=== PATIENT | male | born 1980 | race Caucasian/White ===

== ENCOUNTER 2019-08-10 12:24 | Inpatient (IN) | payer OTHER ==
--- NOTE | 2019-08-10 12:43 | BHS.RME ---
Substance Use & Tx History - Substance Use History Alcohol Substance amount: 3 6 packs of beers Frequency of use: Daily (3) Substance route: Oral Date of Last Use: 08/10/19 (7am) Opiates (Heroin) Substance amount: 6 bags Frequency of use: Daily Substance route: Injection (ex: intravenous or skin popping) Date of Last Use: 08/09/19 Nicotine Substance amount: 1.5 packs Frequency of use: Daily Substance route: Smoking Date of Last Use: 08/10/19 - Last Treatment Date of last treatment: [address] Treatment type: Substance Use Disorder (ARIA) Where was last treatment: Detox Physical/Psych/Mental Status - Behavior General Behavior: Increased activity (restlessness, agitation) Eye Contact: Normal - Cooperativeness Cooperativeness: Cooperative - Thinking Thought Processes: Tight, Logical, Goal Directed Thought content: Future oriented - Physical Health Problems Is patient presently having any pain?: No Does patient presently have any injuries (include location): No Does patient currently have a fever: No Is patient : No COWS - Scale Resting Pulse: 0= [place] 80 or Below Sweatin= Chills/Flushing Restless Observation: 1= Difficult to Sit Still Pupil Size: 0= Normal to Room Light Bone or Joint Aches: 2= Severe Diffuse Aches Runny Nose/ Eye Tearin= Nasal Congestion GI Upset > 30mins: 3= Vomiting/Diarrhea Tremor Observation: 2= Slight Tremor Visible Yawning Observation: 1= 1-2x During Session Anxiety or Irritability: 2=Irritable/Anxious Goose Flesh Skin: 0=Smooth Skin COWS Score: 13 CIWA Nausea/Vomitin Muscle Tremors: 3 Anxiety: 2 Agitation: 2 Paroxysmal Sweats: 2 Orientation: 1-Uncertain about Date Tacttile Disturbances: 2-Mild Itch/Numbness/Burn Auditory Disturbances: 0-None Visual Disturbances: 0-None Headache: 3-Moderate CIWA-Ar Total Score: 17
--- NOTE | 2019-08-10 13:07 | HP ---
COWS - Scale Resting Pulse: 0= [place] 80 or Below Sweatin= Chills/Flushing Restless Observation: 1= Difficult to Sit Still Pupil Size: 0= Normal to Room Light Bone or Joint Aches: 2= Severe Diffuse Aches Runny Nose/ Eye Tearin= Nasal Congestion GI Upset > 30mins: 3= Vomiting/Diarrhea Tremor Observation: 2= Slight Tremor Visible Yawning Observation: 1= 1-2x During Session Anxiety or Irritability: 2=Irritable/Anxious Goose Flesh Skin: 0=Smooth Skin COWS Score: 13 CIWA Score Nausea/Vomitin Muscle Tremors: 3 Anxiety: 2 Agitation: 2 Paroxysmal Sweats: 2 Orientation: 1-Uncertain about Date Tacttile Disturbances: 2-Mild Itch/Numbness/Burn Auditory Disturbances: 0-None Visual Disturbances: 0-None Headache: 3-Moderate CIWA-Ar Total Score: 17 - Admission Criteria OASAS Guidelines: Admission for Medically Managed Detox: Requires at least one of the followin. CIWA greater than 12 2. Seizures within the past 24 hours 3. Delirium tremens within the past 24 hours 4. Hallucinations within the past 24 hours 5. Acute intervention needed for co occurring medical disorder 6. Acute intervention needed for co occurring psychiatric disorder 7. Severe withdrawal that cannot be handled at a lower level of care (continued vomiting, continued diarrhea, abnormal vital signs) requiring intravenous medication and/or fluids 8. Admitting History and Physical - Admission Chief Complaint: Mr. Chairez is a 39 yo man who presents to [facility] requesting a detox admission for "alcohol and heroin". History of Present Illness: Mr. Chairez is a 39 yo man who presents to [facility] requesting a detox admission for "alcohol and heroin". This is his first admission to [facility]. He was in a detox/rehab program called [facility]. However, after one month he was discharged due to noncompliance with a search. PMH: Hep C treated but unknown outcome, asthma PSurg: b/l inguinal hernia, hernioraphies Psych: none Substance use disorde Alcohol: 3x 6 pack, 24 ounce each, first use age 14y, last use 08/10/19. No blackouts or seizures heroin; 6 bags per day, IV, first use a14 yo, last use 08/09/19. No OD. No Narcan. In Methadone program, 90 mg dialy, dosed today: [address], HELP Nicotine: 1.5 ppd, first use 6yo, last use today Soc: homeless Meets admision criteria: homeless, high risk OD, poor decision making, poor judgment History Source: Patient Limitations to Obtaining History: No Limitations Admission ROS BHS - HPI Exam Limitations: No Limitations - Ebola screening Have you traveled outside of the country in the last 21 days: No Have you had contact with anyone from an Ebola affected area: No Have you been sick,other than usual withdrawal symptoms: No Do you have a fever: No - Review of Systems Constitutional: Loss of Appetite EENT: reports: Blurred Vision (glasses for distance, has with him) Respiratory: reports: No Symptoms reported Cardiac: reports: No Symptoms Reported GI: reports: See HPI, Nausea : reports: Frequency Musculoskeletal: reports: Joint Pain Integumentary: reports: No Symptoms Reported Neuro: reports: Headache Endocrine: reports: No Symptoms Reported Hematology: reports: No Symptoms Reported Psychiatric: reports: Anxious Patient History - Patient Medical History Hx Asthma: Yes (no current inhaler use) Hx Hepatitis C: Yes (treated, outcome unknown) - Patient Surgical History Hx Abdominal Surgery: Yes (bilateral inguinal hernia) - PPD History Documented Results: Negative w/o proof PPD to be Administered?: Yes - Smoking Cessation Smoking history: Current every day smoker Have you smoked in the past 12 months: Yes Aproximately how many cigarettes per day: 30 Initiated information on smoking cessation: Yes 'Breaking Loose' booklet given: 08/10/19 - Substances abused Alcohol Substance route: Oral Amount used: 3 x 6 pack, 24 ounce beer Age of first use: 14 Date of last use: 08/10/19 Heroin Substance route: Injection Amount used: 6 bags Age of first use: 14 Date of last use: 08/09/19 Admission Physical Exam BHS - Physical General Appearance: Yes: Within Normal Limits HEENTM: Yes: Hearing grossly Normal, Normocephalic Respiratory: Yes: Lungs Clear, Normal Breath Sounds Neck: Yes: Within Normal Limits Breast: Yes: Breast Exam Deferred Cardiology: Yes: Regular Rate, S1, S2 Abdominal: Yes: Normal Bowel Sounds, Non Tender, Flat, Soft Genitourinary: Yes: Other (defered) Back: Yes: Normal Inspection Musculoskeletal: Yes: Within Normal Limits Extremities: Yes: Within Normal Limits Neurological: Yes: Alert, Normal Response Integumentary: Yes: Other (track lis right forearm and ac fossa, no sign of infection. multiple tattoos. Left medial forearm track lis, clean) - Diagnostic (1) Alcohol dependence with withdrawal, uncomplicated Current Visit: Yes Status: Acute (2) Opioid use disorder Current Visit: Yes Status: Acute (3) Opioid dependence on agonist therapy Current Visit: Yes Status: Acute (4) Hepatitis C Current Visit: No Status: Chronic (5) Asthma Current Visit: No Status: Chronic Cleared for Admission S - Detox or Rehab [facility] Level of Care: Medically Managed Breathalyzer - Breathalyzer Breathalyzer: 0.150 Urine Drug Screen - Results Urine drug screen results: MOP-Opiates, MTD-Methadone, BZO-Benzodiazepines Inpatient Rehab Admission - Rehab Decision to Admit Inpatient rehab admission?: No
[2019-08-10] MEDS ORDERED: IBUPROFEN 400 MG TABLET (FP) PO PRN (13:16)
[2019-08-10] MEDS ORDERED: MAGNESIUM HYDROX 2400MG/30ML ORAL SUSPENSION 30 ML CUP PO PRN (13:16)
[2019-08-10] MEDS ORDERED: METHOCARBAMOL 500 MG TABLET PO PRN (13:16)
[2019-08-10] MEDS ORDERED: MENTHOL/PHENOL 1 EACH UD MM PRN (13:16)
[2019-08-10] MEDS ORDERED: BISMUTH SUBSALICYLATE 262 MG/15 ML BTL PO PRN (13:16)
[2019-08-10] MEDS ORDERED: MAG HYDROX/AL HYDROX/SIMETH 30 ML UNIT-DOSE CUP PO PRN (13:16)
[2019-08-10] MEDS ORDERED: MAGNESIUM CITRATE 300 ML BOTTLE PO PRN (13:16)
[2019-08-10] MEDS ORDERED: chlordiazePOXIDE HCL 25 MG CAPSULE PO PRN (13:16)
[2019-08-10] MEDS ORDERED: ACETAMINOPHEN 325 MG TABLET (FP) PO PRN ×2 (13:16)
[2019-08-10 13:36] VITALS: BMI 29.2
[2019-08-10] MEDS ORDERED: ONDANSETRON *ODT* 4 MG TABLET SL ONE (14:00)
--- NOTE | 2019-08-10 14:31 | EKG ---
Test Reason : Blood Pressure : / mmHG Vent. Rate : 063 BPM Atrial Rate : 063 BPM P-R Int : 152 ms QRS Dur : 102 ms QT Int : 424 ms P-R-T Axes : 059 012 005 degrees QTc Int : 433 ms NORMAL SINUS RHYTHM NONSPECIFIC T WAVE ABNORMALITY ABNORMAL ECG NO PREVIOUS ECGS AVAILABLE Confirmed by Gaby Cali ([id number]) on 08/10/2019 2:30:47 PM Referred By: Confirmed By:Gaby Cali
[2019-08-10] MEDS: hydrOXYzine PAMOATE 25 MG CAPSULE (FP) PO SCH ×3 (14:43→22:13)
[2019-08-10] MEDS: NICOTINE 21 MG/24 HOURS TOPICAL PATCH TD SCH (14:43)
[2019-08-10 17:12] LABS: HEMATOCRIT 41.8 % (35.4-49); HEMOGLOBIN 13.9 GM/dL (11.7-16.9); MCH 30.8 pg (25.7-33.7); MCHC 33.3 g/dl (32.0-35.9); MEAN CELL VOLUME 92.4 fl (80-96); MEAN PLT VOLUME 8.3 fl (7.5-11.1); PLATELET COUNT 174 K/MM3 (134-434); RBC 4.53 M/mm3 (4.00-5.60); RDW 14.4 % (11.9-15.9); WHITE BLOOD COUNT 7.6 K/mm3 (4.0-10.0)
[2019-08-10 17:35] LABS: BILIRUBIN,TOTAL 0.4 mg/dL (0.2-1); BLOOD UREA NITROGEN 14.4 mg/dL (7-18); CALCIUM 9.1 mg/dL (8.5-10.1); CREATININE 0.9 mg/dL (0.55-1.3); POTASSIUM 4.9 mmol/L (3.5-5.1); TOT PROT 8.8 g/dl (6.4-8.2)
[2019-08-10] MEDS: chlordiazePOXIDE HCL 25 MG CAPSULE PO SCH ×2 (18:06→22:12)
[2019-08-10] MEDS: MELATONIN 5 MG TABLETS PO SCH (22:13)
[2019-08-10] MEDS: THIAMINE HCL 100 MG TABLET (FP) PO SCH (22:13)
[2019-08-11] MEDS ORDERED: METHADONE HCL 10 MG TABLET ONE (04:51)
[2019-08-11] MEDS ORDERED: METHADONE HCL 40 MG DISPERSABLE TABLET ONE (04:51)
[2019-08-11] MEDS: hydrOXYzine PAMOATE 25 MG CAPSULE (FP) PO SCH ×5 (05:14→22:02)
[2019-08-11] MEDS: METHADONE 80 MG, METHADONE 10 MG PO SCH (05:14)
[2019-08-11] MEDS: chlordiazePOXIDE HCL 25 MG CAPSULE PO SCH ×4 (05:14→22:03)
[2019-08-11] MEDS ORDERED: METHADONE HCL 10 MG TABLET PO SCH (06:00)
[2019-08-11] MEDS: PRENATAL VITAMINS W/ FOLIC ACID TABLET (FP) PO SCH (10:09)
[2019-08-11] MEDS: NICOTINE 21 MG/24 HOURS TOPICAL PATCH TD SCH ×2 (10:12→12:58)
[2019-08-11] MEDS: NICOTINE POLACRILEX 2 MG GUM BUC PRN ×2 (12:58→17:20)
--- NOTE | 2019-08-11 16:01 | PN ---
[facility] CIWA - CIWA Score Nausea/Vomitin-Mild Nausea/No Vomiting Muscle Tremors: 3 Anxiety: 3 Agitation: 1-Slight > Activity Paroxysmal Sweats: 2 Orientation: 0-Oriented Tacttile Disturbances: 1-Very Mild Itch/Numbness Auditory Disturbances: 0-None Visual Disturbances: 1-Very Mild Sensitivity Headache: 0-None Present CIWA-Ar Total Score: 12 BHS Progress Note (SOAP) Subjective: 39 years old male admitted on 08/10/19 for alcohol withdrawal sx management treating with librium detox regiment received methadone 90 mg po today feeling better less tremor mild anxiety Objective: 08/11/19 16:02 Vital Signs Temperature 97.5 F L 08/11/19 12:34 Pulse Rate 60 08/11/19 12:34 Respiratory Rate 16 08/11/19 12:34 Blood Pressure 120/73 08/11/19 12:34 O2 Sat by Pulse Oximetry (%) Laboratory Last Values WBC 7.6 K/mm3 (4.0-10.0) 08/10/19 13:40 RBC 4.53 M/mm3 (4.00-5.60) 08/10/19 13:40 Hgb 13.9 GM/dL (11.7-16.9) 08/10/19 13:40 Hct 41.8 % (35.4-49) 08/10/19 13:40 MCV 92.4 fl (80-96) 08/10/19 13:40 MCH 30.8 pg (25.7-33.7) 08/10/19 13:40 MCHC 33.3 g/dl (32.0-35.9) 08/10/19 13:40 RDW 14.4 % (11.9-15.9) 08/10/19 13:40 Plt Count 174 K/MM3 (134-434) 08/10/19 13:40 MPV 8.3 fl (7.5-11.1) 08/10/19 13:40 Sodium 140 mmol/L (136-145) 08/10/19 13:40 Potassium 4.9 mmol/L (3.5-5.1) 08/10/19 13:40 Chloride 104 mmol/L (98-107) 08/10/19 13:40 Carbon Dioxide 30 mmol/L (21-32) 08/10/19 13:40 Anion Gap 5 MMOL/L (8-16) L 08/10/19 13:40 BUN 14.4 mg/dL (7-18) 08/10/19 13:40 Creatinine 0.9 mg/dL (0.55-1.3) 08/10/19 13:40 Est GFR (CKD-EPI)AfAm 123.39 08/10/19 13:40 Est GFR (CKD-EPI)NonAf 106.46 08/10/19 13:40 Random Glucose 80 mg/dL (74-106) 08/10/19 13:40 Calcium 9.1 mg/dL (8.5-10.1) 08/10/19 13:40 Total Bilirubin 0.4 mg/dL (0.2-1) 08/10/19 13:40 AST 24 U/L (15-37) 08/10/19 13:40 ALT 28 U/L (13-61) 08/10/19 13:40 Alkaline Phosphatase 65 U/L (45-117) 08/10/19 13:40 Total Protein 8.8 g/dl (6.4-8.2) H 08/10/19 13:40 Albumin 4.0 g/dl (3.4-5.0) 08/10/19 13:40 RPR Titer Nonreactive (NONREACTIVE) 08/10/19 13:40 lab noted Assessment: 08/11/19 16:02 alcohol withdrawal Plan: librium regiment found patient possesses a lane attendant and cigarette security obtains the objects stores in property reinforce unt rules and regulations encourage compliance
[2019-08-11] MEDS: MELATONIN 5 MG TABLETS PO SCH (22:03)
[2019-08-11] MEDS: THIAMINE HCL 100 MG TABLET (FP) PO SCH (22:03)
[2019-08-12] MEDS ORDERED: METHADONE HCL 40 MG DISPERSABLE TABLET ONE (04:38)
[2019-08-12] MEDS ORDERED: METHADONE HCL 10 MG TABLET ONE (04:38)
[2019-08-12] MEDS: METHADONE 80 MG, METHADONE 10 MG PO SCH (05:22)
[2019-08-12] MEDS: chlordiazePOXIDE HCL 25 MG CAPSULE PO SCH ×4 (05:23→22:18)
[2019-08-12] MEDS: hydrOXYzine PAMOATE 25 MG CAPSULE (FP) PO SCH ×5 (05:23→22:18)
[2019-08-12] MEDS: PRENATAL VITAMINS W/ FOLIC ACID TABLET (FP) PO SCH (10:08)
[2019-08-12] MEDS: NICOTINE 21 MG/24 HOURS TOPICAL PATCH TD SCH (10:09)
[2019-08-12] MEDS: NICOTINE POLACRILEX 2 MG GUM BUC PRN ×4 (10:10→22:20)
--- NOTE | 2019-08-12 13:43 | PN ---
[facility] CIWA - CIWA Score Nausea/Vomitin-No Nausea/No Vomiting Muscle Tremors: 3 Anxiety: 1-Mildly Anxious Agitation: 1-Slight > Activity Paroxysmal Sweats: 2 Orientation: 0-Oriented Tacttile Disturbances: 0-None Auditory Disturbances: 0-None Visual Disturbances: 2-Mild Sensitivity Headache: 1-Very Mild CIWA-Ar Total Score: 10 S Progress Note (SOAP) Subjective: 39 years old male admitted on 08/10/19 for alcohol withdrawal sx management treating with librum detox regiment irritable tremor restlessness Objective: 08/12/19 13:43 Vital Signs Temperature 98.8 F 08/12/19 12:40 Pulse Rate 61 08/12/19 12:40 Respiratory Rate 18 08/12/19 12:40 Blood Pressure 122/77 08/12/19 12:40 O2 Sat by Pulse Oximetry (%) Laboratory Last Values WBC 7.6 K/mm3 (4.0-10.0) 08/10/19 13:40 RBC 4.53 M/mm3 (4.00-5.60) 08/10/19 13:40 Hgb 13.9 GM/dL (11.7-16.9) 08/10/19 13:40 Hct 41.8 % (35.4-49) 08/10/19 13:40 MCV 92.4 fl (80-96) 08/10/19 13:40 MCH 30.8 pg (25.7-33.7) 08/10/19 13:40 MCHC 33.3 g/dl (32.0-35.9) 08/10/19 13:40 RDW 14.4 % (11.9-15.9) 08/10/19 13:40 Plt Count 174 K/MM3 (134-434) 08/10/19 13:40 MPV 8.3 fl (7.5-11.1) 08/10/19 13:40 Sodium 140 mmol/L (136-145) 08/10/19 13:40 Potassium 4.9 mmol/L (3.5-5.1) 08/10/19 13:40 Chloride 104 mmol/L (98-107) 08/10/19 13:40 Carbon Dioxide 30 mmol/L (21-32) 08/10/19 13:40 Anion Gap 5 MMOL/L (8-16) L 08/10/19 13:40 BUN 14.4 mg/dL (7-18) 08/10/19 13:40 Creatinine 0.9 mg/dL (0.55-1.3) 08/10/19 13:40 Est GFR (CKD-EPI)AfAm 123.39 08/10/19 13:40 Est GFR (CKD-EPI)NonAf 106.46 08/10/19 13:40 Random Glucose 80 mg/dL (74-106) 08/10/19 13:40 Calcium 9.1 mg/dL (8.5-10.1) 08/10/19 13:40 Total Bilirubin 0.4 mg/dL (0.2-1) 08/10/19 13:40 AST 24 U/L (15-37) 08/10/19 13:40 ALT 28 U/L (13-61) 08/10/19 13:40 Alkaline Phosphatase 65 U/L (45-117) 08/10/19 13:40 Total Protein 8.8 g/dl (6.4-8.2) H 08/10/19 13:40 Albumin 4.0 g/dl (3.4-5.0) 08/10/19 13:40 RPR Titer Nonreactive (NONREACTIVE) 08/10/19 13:40 lab noted Assessment: 08/12/19 13:43 alcohol withdrawal Plan: librium regiment
[2019-08-12] MEDS: MELATONIN 5 MG TABLETS PO SCH (22:18)
[2019-08-12] MEDS: THIAMINE HCL 100 MG TABLET (FP) PO SCH (22:18)
[2019-08-13] MEDS ORDERED: chlordiazePOXIDE HCL 10 MG CAPSULE PO PRN
[2019-08-13] MEDS ORDERED: METHADONE HCL 10 MG TABLET ONE (04:34)
[2019-08-13] MEDS ORDERED: METHADONE HCL 40 MG DISPERSABLE TABLET ONE (04:35)
[2019-08-13] MEDS: hydrOXYzine PAMOATE 25 MG CAPSULE (FP) PO SCH ×5 (05:06→22:16)
[2019-08-13] MEDS: chlordiazePOXIDE HCL 10 MG CAPSULE PO SCH ×4 (05:20→22:16)
[2019-08-13] MEDS: METHADONE 80 MG, METHADONE 10 MG PO SCH (05:20)
[2019-08-13] MEDS: NICOTINE POLACRILEX 2 MG GUM BUC PRN (10:11)
[2019-08-13] MEDS: NICOTINE 21 MG/24 HOURS TOPICAL PATCH TD SCH (10:11)
[2019-08-13] MEDS: PRENATAL VITAMINS W/ FOLIC ACID TABLET (FP) PO SCH (10:11)
--- NOTE | 2019-08-13 11:56 | PN ---
S CIWA - CIWA Score Nausea/Vomitin-No Nausea/No Vomiting Muscle Tremors: 2 Anxiety: 2 Agitation: 0-Normal Activity Paroxysmal Sweats: 2 Orientation: 0-Oriented Tacttile Disturbances: 0-None Auditory Disturbances: 0-None Visual Disturbances: 0-None Headache: 0-None Present CIWA-Ar Total Score: 6 BHS Progress Note (SOAP) Subjective: 39 years old male admitted on 08/10/19 for alcohol withdrawal sx management treating with librium detox regiment feeling better today social with peers in day room less tremor Objective: 08/13/19 11:56 Vital Signs Temperature 992 F H 08/13/19 08:50 Pulse Rate 73 08/13/19 08:50 Respiratory Rate 18 08/13/19 08:50 Blood Pressure 134/79 08/13/19 08:50 O2 Sat by Pulse Oximetry (%) Laboratory Last Values WBC 7.6 K/mm3 (4.0-10.0) 08/10/19 13:40 RBC 4.53 M/mm3 (4.00-5.60) 08/10/19 13:40 Hgb 13.9 GM/dL (11.7-16.9) 08/10/19 13:40 Hct 41.8 % (35.4-49) 08/10/19 13:40 MCV 92.4 fl (80-96) 08/10/19 13:40 MCH 30.8 pg (25.7-33.7) 08/10/19 13:40 MCHC 33.3 g/dl (32.0-35.9) 08/10/19 13:40 RDW 14.4 % (11.9-15.9) 08/10/19 13:40 Plt Count 174 K/MM3 (134-434) 08/10/19 13:40 MPV 8.3 fl (7.5-11.1) 08/10/19 13:40 Sodium 140 mmol/L (136-145) 08/10/19 13:40 Potassium 4.9 mmol/L (3.5-5.1) 08/10/19 13:40 Chloride 104 mmol/L (98-107) 08/10/19 13:40 Carbon Dioxide 30 mmol/L (21-32) 08/10/19 13:40 Anion Gap 5 MMOL/L (8-16) L 08/10/19 13:40 BUN 14.4 mg/dL (7-18) 08/10/19 13:40 Creatinine 0.9 mg/dL (0.55-1.3) 08/10/19 13:40 Est GFR (CKD-EPI)AfAm 123.39 08/10/19 13:40 Est GFR (CKD-EPI)NonAf 106.46 08/10/19 13:40 Random Glucose 80 mg/dL (74-106) 08/10/19 13:40 Calcium 9.1 mg/dL (8.5-10.1) 08/10/19 13:40 Total Bilirubin 0.4 mg/dL (0.2-1) 08/10/19 13:40 AST 24 U/L (15-37) 08/10/19 13:40 ALT 28 U/L (13-61) 08/10/19 13:40 Alkaline Phosphatase 65 U/L (45-117) 08/10/19 13:40 Total Protein 8.8 g/dl (6.4-8.2) H 08/10/19 13:40 Albumin 4.0 g/dl (3.4-5.0) 08/10/19 13:40 RPR Titer Nonreactive (NONREACTIVE) 08/10/19 13:40 lab noted Assessment: 08/13/19 11:56 alcohol withdrawal Plan: librium regiment
[2019-08-13] MEDS: MELATONIN 5 MG TABLETS PO SCH (22:16)
[2019-08-13] MEDS: THIAMINE HCL 100 MG TABLET (FP) PO SCH (22:16)
[2019-08-14 00:01] VITALS: PULSE 75
[2019-08-14] MEDS ORDERED: METHADONE HCL 10 MG TABLET ONE (03:56)
[2019-08-14] MEDS ORDERED: METHADONE HCL 40 MG DISPERSABLE TABLET ONE (03:57)
[2019-08-14] MEDS ORDERED: chlordiazePOXIDE HCL 10 MG CAPSULE PO SCH (05:00)
[2019-08-14] MEDS: hydrOXYzine PAMOATE 25 MG CAPSULE (FP) PO SCH (05:40)
[2019-08-14] MEDS: METHADONE 80 MG, METHADONE 10 MG PO SCH (05:41)
[2019-08-14 06:12] VITALS: BP 140/90; TEMP 97.2
--- NOTE | 2019-08-14 11:57 | DS ---
[facility] Detox Discharge Summary Admission Date: 08/10/19 Discharge Date: 08/14/19 - History Present History: Alcohol Dependence Additional Comments: PMH: Hep C treated, outcome unknown, asthma Psych; no hx - Physical Exam Results Vital Signs: Vital Signs Temperature 97.2 F L 08/14/19 06:11 Pulse Rate 75 08/14/19 06:11 Respiratory Rate 18 08/14/19 06:45 Blood Pressure 140/90 08/14/19 06:11 O2 Sat by Pulse Oximetry (%) Pertinent Admission Physical Exam Findings: PE gnl: WDWN, in no distress MS; awake, alert, nl language function Motor: nl Gait: steady - Treatment Hospital Course: Detox Protocol Followed, Detoxed Safely, Responded well, Discharged Condition Good, Rehab Referral Accepted - Medication Discharge Medications: Ambulatory Orders Methadone [Dolophine -] 90 mg PO DAILY 08/10/19 - Diagnosis (1) Alcohol dependence with withdrawal, uncomplicated Status: Acute (2) Opioid use disorder Status: Chronic (3) Opioid dependence on agonist therapy Status: Chronic (4) Hepatitis C Status: Chronic (5) Asthma Status: Chronic - AMA Did Patient Leave Against Medical Advice: No
[2019-08-15] MEDS ORDERED: chlordiazePOXIDE HCL 10 MG CAPSULE PO ONE (05:00)
== END 2019-08-14 08:55 | disposition home or self-care (01) | DRG 773 ==
LOC: YASAS 12:24 → Y3N 13:48
PROVIDERS: ADMIT Allergy & Immunology; ATTEND Allergy & Immunology
PROC: HZ2ZZZZ Detoxification Services for Substance Abuse Treatment (ICD-10-PCS; principal; 2019-08-10)
DX: F10.230 Alcohol dependence with withdrawal, uncomplicated (principal); F11.20 Opioid dependence, uncomplicated; F17.210 Nicotine dependence, cigarettes, uncomplicated; J45.909 Unspecified asthma, uncomplicated; B18.2 Chronic viral hepatitis C; Z98.890 Other specified postprocedural states; Z59.0 Homelessness
CPT/HCPCS: 36415; 80053; 85027; 86593; 93005; 93010; Q0162

== ENCOUNTER 2019-12-15 11:23 | Inpatient (IN) | payer OTHER ==
--- NOTE | 2019-12-15 11:36 | BHS.RME ---
Substance Use & Tx History - Substance Use History Alcohol Substance amount: 1 SIX PACK AND 2 PINTS VODKA Frequency of use: Daily Substance route: Oral Date of Last Use: 12/15/19 Heroin Substance amount: 9-12 BAGS Frequency of use: Daily Substance route: Injection (ex: intravenous or skin popping) Date of Last Use: 12/14/19 (10PM) Nicotine Substance amount: 1.5 PACKS Frequency of use: Daily Substance route: Smoking Date of Last Use: 12/14/19 - Last Treatment Date of last treatment: 08/09-08/14/19 Treatment type: Substance Use Disorder (ARIA) Where was last treatment: Detox Physical/Psych/Mental Status - Behavior General Behavior: Increased activity (restlessness, agitation) Eye Contact: Normal - Cooperativeness Cooperativeness: Cooperative - Thinking Thought Processes: Tight, Logical, Goal Directed - Physical Health Problems Is patient presently having any pain?: No Does patient presently have any injuries (include location): No Does patient currently have a fever: No Is patient : No CIWA Nausea/Vomitin Muscle Tremors: 4-Moderate,w/Arms Extend Anxiety: 3 Agitation: 3 Paroxysmal Sweats: 5 Orientation: 2-Disoriented Date<2 days Tacttile Disturbances: 0-None Auditory Disturbances: 0-None Visual Disturbances: 0-None Headache: 2-Mild CIWA-Ar Total Score: 22
--- NOTE | 2019-12-15 13:07 | HP ---
CIWA Score Nausea/Vomitin Muscle Tremors: 4-Moderate,w/Arms Extend Anxiety: 3 Agitation: 3 Paroxysmal Sweats: 5 Orientation: 2-Disoriented Date<2 days Tacttile Disturbances: 0-None Auditory Disturbances: 0-None Visual Disturbances: 0-None Headache: 2-Mild CIWA-Ar Total Score: 22 - Admission Criteria OASAS Guidelines: Admission for Medically Managed Detox: Requires at least one of the followin. CIWA greater than 12 2. Seizures within the past 24 hours 3. Delirium tremens within the past 24 hours 4. Hallucinations within the past 24 hours 5. Acute intervention needed for co occurring medical disorder 6. Acute intervention needed for co occurring psychiatric disorder 7. Severe withdrawal that cannot be handled at a lower level of care (continued vomiting, continued diarrhea, abnormal vital signs) requiring intravenous medication and/or fluids 8. Admitting History and Physical - Admission Chief Complaint: Mr. Chairez presents to [facility] to [facility] for detox from alcohol and heroin. History of Present Illness: Mr. Chairez is a 39 yo male presentin g to [facility] for detox from alcohol and heroin. PMH: HCV treated and asthma PSH: B/L INGUINAL HERNIA PSYCH H: NONE SOCIAL: HOMELESS, [place]ES [place] [address] LEGAL: NO COURT DATE Substance Use & Tx History - Substance Use History Alcohol Substance amount: 1 SIX PACK AND 2 PINTS VODKA Frequency of use: Daily Substance route: Oral Date of Last Use: 12/15/19 First use, age 14, no seizures, no blackout. Admits to eye-employment representative. Heroin Substance amount: 9-12 BAGS Frequency of use: Daily Substance route: Injection (ex: intravenous or skin popping) Date of Last Use: 12/14/19 (10PM) First use at age 14, no hx of overdose, no narcan at home Nicotine Substance amount: 1.5 PACKS Frequency of use: Daily Substance route: Smoking Date of Last Use: 12/14/19 First use: age 6 - Last Treatment Date of last treatment: 08/09-08/14/19 Treatment type: Substance Use Disorder (ARIA) Where was last treatment: Detox History Source: Patient Limitations to Obtaining History: No Limitations - Smoking History Smoking history: Current every day smoker Have you smoked in the past 12 months: Yes Aproximately how many cigarettes per day: 30 Admission ROS BHS - HPI Allergies/Adverse Reactions: Allergies Allergy/AdvReac Type Severity Reaction Status Date / Time No Known Drug Allergies Allergy Verified 08/10/19 13:26 - Ebola screening Have you traveled outside of the country in the last 21 days: No Have you been sick,other than usual withdrawal symptoms: No Do you have a fever: No - Review of Systems Constitutional: Loss of Appetite (Patient says he is not eating and has lost about 15IBs so far within a month), Changes in sleep EENT: reports: No Symptoms Reported Respiratory: reports: No Symptoms reported Cardiac: reports: No Symptoms Reported GI: reports: Nausea : reports: No Symptoms Reported Musculoskeletal: reports: Other (Muscle cramps.) Integumentary: reports: No Symptoms Reported Neuro: reports: Headache Endocrine: reports: No Symptoms Reported Hematology: reports: No Symptoms Reported Psychiatric: reports: No Sypmtoms Reported Patient History - Patient Medical History Hx Asthma: Yes Hx Chronic Obstructive Pulmonary Disease (COPD): No Hx Cardiac Disorders: No Hx Hypertension: No Hx Seizures: No Hx Diabetes: No Hx Gastrointestinal Disorders: No Hx Genitourinary Disorders: No Hx Sexually Transmitted Disorders: No Hx Renal Disease (ESRD): No Hx Hepatitis C: Yes (treated, outcome unknown) Hx Depression: No Hx Suicide Attempt: No Hx Schizophrenia: No - Patient Surgical History Past Surgical History: No Hx Neurologic Surgery: No Hx Cataract Extraction: No Hx Cardiac Surgery: No Hx Lung Surgery: No Hx Breast Surgery: No Hx Breast Biopsy: No Hx Abdominal Surgery: Yes (bilateral inguinal hernia) Hx Appendectomy: No Hx Cholecystectomy: No Hx Genitourinary Surgery: No Hx Section: No Hx Orthopedic Surgery: No Anesthesia Reaction: Yes - PPD History Date: 08/12/19 - Smoking Cessation Smoking history: Current every day smoker Have you smoked in the past 12 months: Yes Aproximately how many cigarettes per day: 30 Cigars Per Day: 0 Hx Chewing Tobacco Use: No Initiated information on smoking cessation: Yes 'Breaking Loose' booklet given: 12/15/[address] [facility] Physical General Appearance: Yes: No Apparent Distress, Nourished HEENTM: Yes: EOMI, Hearing grossly Normal, Normocephalic, Normal Voice Respiratory: Yes: Within Normal Limits Abdominal: Yes: Normal Bowel Sounds, Non Tender, Flat, Soft Back: Yes: Normal Inspection Musculoskeletal: Yes: Gait Steady Extremities: Yes: Normal Inspection, Non-Tender Neurological: Yes: Fully Oriented, Alert, Normal Mood/Affect, Normal Response Integumentary: Yes: Normal Color, Dry, Warm - Diagnostic (1) Nicotine addiction Current Visit: Yes Status: Acute (2) Homeless Current Visit: Yes Status: Acute (3) Alcohol dependence with withdrawal, uncomplicated Current Visit: Yes Status: Acute (4) Asthma Current Visit: No Status: Chronic (5) Hepatitis C Current Visit: No Status: Chronic (6) Opioid dependence on agonist therapy Current Visit: Yes Status: Chronic Cleared for Admission S - Detox or Rehab [facility] Level of Care: Medically Managed Detox Regimen/Protocol: Librium Breathalyzer - Breathalyzer Breathalyzer: 0.085 Urine Drug Screen - Test Device Lot number: [id number] Expiration date: 02/07/21 - Control Is test valid?: Yes - Results Drug screen NEGATIVE: No Urine drug screen results: FEN-Fentanyl, MTD-Methadone Inpatient Rehab Admission - Rehab Decision to Admit Inpatient rehab admission?: No
[2019-12-15] MEDS ORDERED: BISMUTH SUBSALICYLATE 524 MG/30 ML UD PO PRN (13:24)
[2019-12-15] MEDS ORDERED: MAGNESIUM HYDROX 2400MG/30ML ORAL SUSPENSION 30 ML CUP PO PRN (13:24)
[2019-12-15] MEDS ORDERED: ONDANSETRON *ODT* 4 MG TABLET SL PRN (13:24)
[2019-12-15] MEDS ORDERED: NICOTINE POLACRILEX 2 MG GUM BUC PRN (13:24)
[2019-12-15] MEDS ORDERED: MAGNESIUM CITRATE 300 ML BOTTLE PO PRN (13:24)
[2019-12-15] MEDS ORDERED: IBUPROFEN 400 MG TABLET (FP) PO PRN (13:24)
[2019-12-15] MEDS ORDERED: ACETAMINOPHEN 325 MG TABLET (FP) PO PRN ×2 (13:24)
[2019-12-15] MEDS ORDERED: MENTHOL/PHENOL 1 EACH UD MM PRN (13:24)
[2019-12-15] MEDS ORDERED: MAG HYDROX/AL HYDROX/SIMETH 30 ML UNIT-DOSE CUP PO PRN (13:24)
[2019-12-15] MEDS ORDERED: chlordiazePOXIDE HCL 25 MG CAPSULE PO PRN (13:30)
[2019-12-15 13:51] VITALS: BMI 28.0
--- NOTE | 2019-12-15 14:33 | PN ---
Teaching Attending Note Name of Resident: Lorene Archer ATTENDING PHYSICIAN STATEMENT I saw and evaluated the patient. I reviewed the resident's note and discussed the case with the resident. I agree with the resident's findings and plan as documented. SUBJECTIVE: OBJECTIVE: ASSESSMENT AND PLAN:
--- NOTE | 2019-12-15 14:51 | EKG ---
Test Reason : Blood Pressure : / mmHG Vent. Rate : 066 BPM Atrial Rate : 066 BPM P-R Int : 160 ms QRS Dur : 094 ms QT Int : 416 ms P-R-T Axes : 074 018 026 degrees QTc Int : 436 ms NORMAL SINUS RHYTHM POSSIBLE LEFT ATRIAL ENLARGEMENT BORDERLINE ECG WHEN COMPARED WITH ECG OF 10-AUG-2019 13:45, NONSPECIFIC T WAVE ABNORMALITY NO LONGER EVIDENT IN LATERAL LEADS Confirmed by MD Santana, Boris ([id number]) on 12/15/2019 2:51:23 PM Referred By: Confirmed By:Boris Dillon MD
[2019-12-15] MEDS: PRENATAL VITAMINS W/ FOLIC ACID TABLET (FP) PO SCH (15:16)
[2019-12-15] MEDS: hydrOXYzine PAMOATE 25 MG CAPSULE (FP) PO SCH ×3 (15:16→22:17)
[2019-12-15] MEDS: NICOTINE 21 MG/24 HOURS TOPICAL PATCH TD SCH (15:17)
[2019-12-15 16:18] LABS: ALBUMIN 4.4 g/dl (3.4-5.0); BILIRUBIN,TOTAL 0.7 mg/dL (0.2-1); BLOOD UREA NITROGEN 31.2 mg/dL (7-18); CALCIUM 9.6 mg/dL (8.5-10.1); CREATININE 1.3 mg/dL (0.55-1.3); HEMATOCRIT 44.7 % (35.4-49); HEMOGLOBIN 15.1 GM/dL (11.7-16.9); MCH 30.5 pg (25.7-33.7); MCHC 33.7 g/dl (32.0-35.9); MEAN CELL VOLUME 90.6 fl (80-96); MEAN PLT VOLUME 8.5 fl (7.5-11.1); PLATELET COUNT 196 K/MM3 (134-434); POTASSIUM 3.4 mmol/L (3.5-5.1); RBC 4.93 M/mm3 (4.00-5.60); RDW 13.8 % (11.9-15.9); TOT PROT 9.6 g/dl (6.4-8.2); WHITE BLOOD COUNT 6.8 K/mm3 (4.0-10.0)
[2019-12-15] MEDS: chlordiazePOXIDE HCL 25 MG CAPSULE PO SCH ×2 (17:36→22:17)
[2019-12-15] MEDS: THIAMINE HCL 100 MG TABLET (FP) PO SCH (22:17)
[2019-12-15] MEDS: MELATONIN 5 MG TABLETS PO SCH (22:17)
[2019-12-16] MEDS ORDERED: METHADONE HCL 10 MG TABLET PO SCH (06:00)
[2019-12-16] MEDS: METHADONE HCL 40 MG DISPERSABLE TABLET PO SCH (06:22)
[2019-12-16] MEDS: hydrOXYzine PAMOATE 25 MG CAPSULE (FP) PO SCH ×5 (06:22→22:10)
[2019-12-16] MEDS: chlordiazePOXIDE HCL 25 MG CAPSULE PO SCH ×4 (06:22→22:10)
--- NOTE | 2019-12-16 09:56 | PN ---
S CIWA - CIWA Score Nausea/Vomitin Muscle Tremors: 3 Anxiety: 3 Agitation: 3 Paroxysmal Sweats: No Perspiration Orientation: 0-Oriented Tacttile Disturbances: 1-Very Mild Itch/Numbness Auditory Disturbances: 0-None Visual Disturbances: 0-None Headache: 2-Mild CIWA-Ar Total Score: 14 S Progress Note (SOAP) Subjective: alert,irritable,anxious,interrupted sleep,tremor,pain in the body and back nausea Objective: 12/16/19 09:54 Vital Signs Temperature 98 F 12/16/19 08:19 Pulse Rate 63 12/16/19 08:19 Respiratory Rate 20 12/16/19 08:19 Blood Pressure 113/75 12/16/19 08:19 O2 Sat by Pulse Oximetry (%) 96 12/16/19 06:04 Laboratory Last Values WBC 6.8 K/mm3 (4.0-10.0) 12/15/19 13:55 RBC 4.93 M/mm3 (4.00-5.60) 12/15/19 13:55 Hgb 15.1 GM/dL (11.7-16.9) 12/15/19 13:55 Hct 44.7 % (35.4-49) 12/15/19 13:55 MCV 90.6 fl (80-96) 12/15/19 13:55 MCH 30.5 pg (25.7-33.7) 12/15/19 13:55 MCHC 33.7 g/dl (32.0-35.9) 12/15/19 13:55 RDW 13.8 % (11.9-15.9) 12/15/19 13:55 Plt Count 196 K/MM3 (134-434) 12/15/19 13:55 MPV 8.5 fl (7.5-11.1) 12/15/19 13:55 Sodium 136 mmol/L (136-145) 12/15/19 13:55 Potassium 3.4 mmol/L (3.5-5.1) L 12/15/19 13:55 Chloride 101 mmol/L (98-107) 12/15/19 13:55 Carbon Dioxide 20 mmol/L (21-32) L 12/15/19 13:55 Anion Gap 15 MMOL/L (8-16) 12/15/19 13:55 BUN 31.2 mg/dL (7-18) H 12/15/19 13:55 Creatinine 1.3 mg/dL (0.55-1.3) 12/15/19 13:55 Est GFR (CKD-EPI)AfAm 79.10 12/15/19 13:55 Est GFR (CKD-EPI)NonAf 68.25 12/15/19 13:55 Random Glucose 106 mg/dL (74-106) 12/15/19 13:55 Calcium 9.6 mg/dL (8.5-10.1) 12/15/19 13:55 Total Bilirubin 0.7 mg/dL (0.2-1) 12/15/19 13:55 AST 48 U/L (15-37) H 12/15/19 13:55 ALT 44 U/L (13-61) 12/15/19 13:55 Alkaline Phosphatase 67 U/L (45-117) 12/15/19 13:55 Total Protein 9.6 g/dl (6.4-8.2) H 12/15/19 13:55 Albumin 4.4 g/dl (3.4-5.0) 12/15/19 13:55 Syphilis Serology Non-reactive (NONREACTIVE) 12/15/19 13:55 HIV Ag/Ab Combo Qual Negative (NEGATIVE) 12/15/19 13:55 Assessment: 12/16/19 09:55 withdrawal symptom Plan: continue detox librium regimen,encourage oral fluid,azothemia bun is 31.2,creatinine 1.3,k is 3.4,ast 48,encourage oral fluid,k dur 20 megq po bid for 2 days, repeat bmp in am,continue methadone maintenance 80 mgs/day
[2019-12-16] MEDS: PRENATAL VITAMINS W/ FOLIC ACID TABLET (FP) PO SCH (10:05)
[2019-12-16] MEDS: NICOTINE 21 MG/24 HOURS TOPICAL PATCH TD SCH (10:05)
[2019-12-16] MEDS: POTASSIUM CHLORIDE TABS 20 MEQ TABLET.ER (FP) PO SCH ×2 (10:05→22:10)
[2019-12-16] MEDS: THIAMINE HCL 100 MG TABLET (FP) PO SCH (22:10)
[2019-12-16] MEDS: MELATONIN 5 MG TABLETS PO SCH (22:10)
[2019-12-17] MEDS: hydrOXYzine PAMOATE 25 MG CAPSULE (FP) PO SCH ×5 (05:08→22:03)
[2019-12-17] MEDS: chlordiazePOXIDE HCL 25 MG CAPSULE PO SCH ×4 (05:08→22:03)
[2019-12-17] MEDS: METHADONE HCL 40 MG DISPERSABLE TABLET PO SCH (05:09)
--- NOTE | 2019-12-17 09:23 | PN ---
S CIWA - CIWA Score Nausea/Vomitin-Mild Nausea/No Vomiting Muscle Tremors: 2 Anxiety: 2 Agitation: 2 Paroxysmal Sweats: No Perspiration Orientation: 0-Oriented Tacttile Disturbances: 0-None Auditory Disturbances: 0-None Visual Disturbances: 0-None Headache: 2-Mild CIWA-Ar Total Score: 9 S Progress Note (SOAP) Subjective: alert,irritable,anxious,interrupted sleep,tremor,ambulation on the unit Objective: 12/17/19 09:17 Vital Signs Temperature 97.3 F L 12/17/19 06:16 Pulse Rate 61 12/17/19 06:16 Respiratory Rate 18 12/17/19 06:16 Blood Pressure 111/68 12/17/19 06:16 O2 Sat by Pulse Oximetry (%) 97 12/17/19 06:16 Assessment: 12/17/19 09:18 withdrawal symptom Plan: continue detox librium regimen,mmtp 80 mgs po daily,fluid,
[2019-12-17] MEDS: POTASSIUM CHLORIDE TABS 20 MEQ TABLET.ER (FP) PO SCH ×2 (10:27→22:03)
[2019-12-17] MEDS: PRENATAL VITAMINS W/ FOLIC ACID TABLET (FP) PO SCH (10:27)
[2019-12-17] MEDS: NICOTINE 21 MG/24 HOURS TOPICAL PATCH TD SCH (10:28)
[2019-12-17 12:54] LABS: CALCIUM 9.8 mg/dL (8.5-10.1); POTASSIUM 4.1 mmol/L (3.5-5.1)
[2019-12-17] MEDS: THIAMINE HCL 100 MG TABLET (FP) PO SCH (22:03)
[2019-12-17] MEDS: MELATONIN 5 MG TABLETS PO SCH (22:03)
[2019-12-18] MEDS: hydrOXYzine PAMOATE 25 MG CAPSULE (FP) PO SCH ×5 (06:00→22:06)
[2019-12-18] MEDS: METHADONE HCL 40 MG DISPERSABLE TABLET PO SCH (06:00)
[2019-12-18] MEDS: chlordiazePOXIDE HCL 10 MG CAPSULE PO SCH ×4 (06:00→22:06)
--- NOTE | 2019-12-18 09:15 | PN ---
S CIWA - CIWA Score Nausea/Vomitin-Mild Nausea/No Vomiting Muscle Tremors: 2 Anxiety: 2 Agitation: 2 Paroxysmal Sweats: No Perspiration Orientation: 0-Oriented Tacttile Disturbances: 0-None Auditory Disturbances: 0-None Visual Disturbances: 0-None Headache: 1-Very Mild CIWA-Ar Total Score: 8 [facility] Progress Note (SOAP) Subjective: alert,irritable,anxious,interrupted sleep,body ache Objective: 12/18/19 09:13 Vital Signs Temperature 96.9 F L 12/18/19 09:04 Pulse Rate 73 12/18/19 09:04 Respiratory Rate 18 12/18/19 09:04 Blood Pressure 123/83 12/18/19 09:04 O2 Sat by Pulse Oximetry (%) 96 12/18/19 04:57 Laboratory Results - last 24 hr 12/15/19 12/17/19 13:55 09:45 Sodium 141 Potassium 4.1 Chloride 105 Carbon Dioxide 29 Anion Gap 7 L BUN 21.0 H Creatinine 1.0 Est GFR (CKD-EPI)AfAm 108.63 Est GFR (CKD-EPI)NonAf 93.73 Random Glucose 84 Calcium 9.8 COVID-19 ([facility]) Not detected Assessment: 12/18/19 09:14 withdrawal symptom Plan: continue detox,encourage oral fluid,hydration,continue librium regimen,continue methadone maintenance 80 mgs/day
[2019-12-18] MEDS: NICOTINE 21 MG/24 HOURS TOPICAL PATCH TD SCH (10:34)
[2019-12-18] MEDS: PRENATAL VITAMINS W/ FOLIC ACID TABLET (FP) PO SCH (10:35)
[2019-12-18] MEDS: chlordiazePOXIDE HCL 10 MG CAPSULE PO PRN ×2 (14:30→20:05)
[2019-12-18] MEDS: THIAMINE HCL 100 MG TABLET (FP) PO SCH (22:06)
[2019-12-18] MEDS: METHOCARBAMOL 500 MG TABLET PO PRN (22:06)
[2019-12-18] MEDS: MELATONIN 5 MG TABLETS PO SCH (22:06)
[2019-12-19] MEDS: METHADONE HCL 40 MG DISPERSABLE TABLET PO SCH (06:03)
[2019-12-19] MEDS: hydrOXYzine PAMOATE 25 MG CAPSULE (FP) PO SCH ×5 (06:04→21:03)
[2019-12-19] MEDS: chlordiazePOXIDE HCL 10 MG CAPSULE PO SCH ×2 (06:04→17:50)
[2019-12-19] MEDS: PRENATAL VITAMINS W/ FOLIC ACID TABLET (FP) PO SCH (09:56)
[2019-12-19] MEDS: NICOTINE 21 MG/24 HOURS TOPICAL PATCH TD SCH (09:56)
--- NOTE | 2019-12-19 12:33 | PN ---
[facility] CIWA - CIWA Score Nausea/Vomitin-No Nausea/No Vomiting Muscle Tremors: None Anxiety: 2 Agitation: 0-Normal Activity Paroxysmal Sweats: 2 Orientation: 0-Oriented Tacttile Disturbances: 0-None Auditory Disturbances: 0-None Visual Disturbances: 0-None Headache: 0-None Present CIWA-Ar Total Score: 4 S Progress Note (SOAP) Subjective: c/o mild withdrawal symptoms. Objective: 12/19/19 12:31 Vital Signs 12/19/19 12/19/19 06:15 08:45 Temperature 97.3 F L 97.3 F L Pulse Rate 68 89 Respiratory 18 18 Rate Blood Pressure 117/74 100/70 O2 Sat by Pulse 95 Oximetry (%) Laboratory Last Values WBC 6.8 K/mm3 (4.0-10.0) 12/15/19 13:55 RBC 4.93 M/mm3 (4.00-5.60) 12/15/19 13:55 Hgb 15.1 GM/dL (11.7-16.9) 12/15/19 13:55 Hct 44.7 % (35.4-49) 12/15/19 13:55 MCV 90.6 fl (80-96) 12/15/19 13:55 MCH 30.5 pg (25.7-33.7) 12/15/19 13:55 MCHC 33.7 g/dl (32.0-35.9) 12/15/19 13:55 RDW 13.8 % (11.9-15.9) 12/15/19 13:55 Plt Count 196 K/MM3 (134-434) 12/15/19 13:55 MPV 8.5 fl (7.5-11.1) 12/15/19 13:55 Sodium 141 mmol/L (136-145) 12/17/19 09:45 Potassium 4.1 mmol/L (3.5-5.1) 12/17/19 09:45 Chloride 105 mmol/L (98-107) 12/17/19 09:45 Carbon Dioxide 29 mmol/L (21-32) 12/17/19 09:45 Anion Gap 7 MMOL/L (8-16) L 12/17/19 09:45 BUN 21.0 mg/dL (7-18) H 12/17/19 09:45 Creatinine 1.0 mg/dL (0.55-1.3) 12/17/19 09:45 Est GFR (CKD-EPI)AfAm 108.63 12/17/19 09:45 Est GFR (CKD-EPI)NonAf 93.73 12/17/19 09:45 Random Glucose 84 mg/dL (74-106) 12/17/19 09:45 Calcium 9.8 mg/dL (8.5-10.1) 12/17/19 09:45 Total Bilirubin 0.7 mg/dL (0.2-1) 12/15/19 13:55 AST 48 U/L (15-37) H 12/15/19 13:55 ALT 44 U/L (13-61) 12/15/19 13:55 Alkaline Phosphatase 67 U/L (45-117) 12/15/19 13:55 Total Protein 9.6 g/dl (6.4-8.2) H 12/15/19 13:55 Albumin 4.4 g/dl (3.4-5.0) 12/15/19 13:55 Syphilis Serology Non-reactive (NONREACTIVE) 12/15/19 13:55 COVID-19 ([facility]) Not detected (Not Detected) 12/15/19 13:55 HIV Ag/Ab Combo Qual Negative (NEGATIVE) 12/15/19 13:55 Labs noted. Assessment: 12/19/19 12:32 AOx 3, in no acute respiratory distress. Full ROM, ambulating in the unit. Mild Withdrawal symptoms. For d/c tomorrow. Plan: continue detox. D/C in AM.
[2019-12-19] MEDS: MELATONIN 5 MG TABLETS PO SCH (21:03)
[2019-12-19] MEDS: THIAMINE HCL 100 MG TABLET (FP) PO SCH (21:03)
[2019-12-19] MEDS: METHOCARBAMOL 500 MG TABLET PO PRN (21:05)
[2019-12-20] MEDS ORDERED: chlordiazePOXIDE HCL 10 MG CAPSULE PO ONE (05:00)
[2019-12-20] MEDS: METHADONE HCL 40 MG DISPERSABLE TABLET PO SCH (06:04)
[2019-12-20] MEDS: hydrOXYzine PAMOATE 25 MG CAPSULE (FP) PO SCH ×2 (06:04→10:20)
[2019-12-20 06:19] VITALS: BP 125/77; PULSE 69; TEMP 97.7
[2019-12-20] MEDS: NICOTINE 21 MG/24 HOURS TOPICAL PATCH TD SCH (10:20)
[2019-12-20] MEDS: PRENATAL VITAMINS W/ FOLIC ACID TABLET (FP) PO SCH (10:20)
[2019-12-20] MEDS: METHOCARBAMOL 500 MG TABLET PO PRN (10:21)
--- NOTE | 2019-12-20 13:02 | DS ---
[facility] Detox Discharge Summary Admission Date: 12/15/19 Discharge Date: 12/20/19 - History Present History: Alcohol Dependence Additional Comments: 39 years old male admitted on 12/15/19 for alcohol withdrawal sx management treated with librium detox regiment mr trinh has completed the librium regiment and is tolerated well alert oriented x 3 speech clearly coherently ambulating with steady gaits cardiac [id number] regular rate rhythm Vital Signs - 24 hr 12/19/19 12/19/19 12/20/19 17:20 20:52 06:19 Temperature 97.3 F L 97.3 F L 97.7 F Pulse Rate 69 73 69 Respiratory 16 16 18 Rate Blood Pressure 130/82 131/80 125/77 O2 Sat by Pulse 98 96 Oximetry (%) 12/20/19 08:43 Temperature 97.7 F Pulse Rate 69 Respiratory 18 Rate Blood Pressure 125/77 O2 Sat by Pulse Oximetry (%) ekg indicated left atrial enlargement mr trinh denies chest pain no shortness of breath no dizziness respiratory clear lung sounds bilaterally on auscultation extremities full range of motion Pertinent Past History: time for discharge 42 minutes - Physical Exam Results Vital Signs: Vital Signs Temperature 97.7 F 12/20/19 08:43 Pulse Rate 69 12/20/19 08:43 Respiratory Rate 18 12/20/19 08:43 Blood Pressure 125/77 12/20/19 08:43 O2 Sat by Pulse Oximetry (%) 96 12/20/19 06:19 Pertinent Admission Physical Exam Findings: alcohol withdrawal Laboratory Tests 12/15/19 12/15/19 12/15/19 13:55 13:55 13:55 WBC 6.8 RBC 4.93 Hgb 15.1 Hct 44.7 MCV 90.6 MCH 30.5 MCHC 33.7 RDW 13.8 Plt Count 196 MPV 8.5 Sodium 136 Potassium 3.4 L Chloride 101 Carbon Dioxide 20 L Anion Gap 15 BUN 31.2 H Creatinine 1.3 Est GFR (CKD-EPI)AfAm 79.10 Est GFR (CKD-EPI)NonAf 68.25 Random Glucose 106 Calcium 9.6 Total Bilirubin 0.7 AST 48 H ALT 44 Alkaline Phosphatase 67 Total Protein 9.6 H Albumin 4.4 Syphilis Serology Non-reactive COVID-19 ([facility]) HIV Ag/Ab Combo Qual 12/15/19 12/15/19 12/17/19 13:55 13:55 09:45 WBC RBC Hgb Hct MCV MCH MCHC RDW Plt Count MPV Sodium 141 Potassium 4.1 Chloride 105 Carbon Dioxide 29 Anion Gap 7 L BUN 21.0 H Creatinine 1.0 Est GFR (CKD-EPI)AfAm 108.63 Est GFR (CKD-EPI)NonAf 93.73 Random Glucose 84 Calcium 9.8 Total Bilirubin AST ALT Alkaline Phosphatase Total Protein Albumin Syphilis Serology COVID-19 ([facility]) Not detected HIV Ag/Ab Combo Qual Negative lab noted bun within acceptable range after hydration - Treatment Hospital Course: Detox Protocol Followed, Detoxed Safely, Responded well, Discharged Condition Good, Rehab Referral Accepted Patient has Accepted [facility] - Medication Discharge Medications: Ambulatory Orders Methadone [Dolophine -] 80 mg PO DAILY 08/10/19 - Diagnosis (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 (2) Alcohol dependence with withdrawal, uncomplicated Status: Acute (3) Nicotine addiction Status: Acute Qualifiers: Nicotine product type: cigarettes Substance use status: in withdrawal Qualified Code(s): F17.213 - Nicotine dependence, cigarettes, with withdrawal (4) Asthma Status: Chronic Qualifiers: Asthma severity: mild Asthma persistence: intermittent Asthma complication type: with status asthmaticus Qualified Code(s): J45.22 - Mild intermittent asthma with status asthmaticus (5) Hepatitis C Status: Chronic Qualifiers: Viral hepatitis chronicity: carrier Qualified Code(s): B18.2 - Chronic viral hepatitis C - AMA Did Patient Leave Against Medical Advice: No CIWA Score - CIWA Score Nausea/Vomitin-No Nausea/No Vomiting Muscle Tremors: None Anxiety: 1-Mildly Anxious Agitation: 0-Normal Activity Paroxysmal Sweats: 1-Minimal Palms Moist Orientation: 0-Oriented Tacttile Disturbances: 0-None Auditory Disturbances: 0-None Visual Disturbances: 0-None Headache: 0-None Present CIWA-Ar Total Score: 2
== END 2019-12-20 12:55 | disposition other institution (70) | DRG 773 ==
LOC: YASAS 11:23 → Y3N 13:44
PROVIDERS: ADMIT Allergy & Immunology; ATTEND Allergy & Immunology
PROC: HZ2ZZZZ Detoxification Services for Substance Abuse Treatment (ICD-10-PCS; principal; 2019-12-15)
DX: F10.230 Alcohol dependence with withdrawal, uncomplicated (principal); F11.20 Opioid dependence, uncomplicated; F17.210 Nicotine dependence, cigarettes, uncomplicated; J45.20 Mild intermittent asthma, uncomplicated; B18.2 Chronic viral hepatitis C; R79.89 Other specified abnormal findings of blood chemistry; Z59.0 Homelessness
CPT/HCPCS: 36415; 80048; 80053; 85027; 86780; 87389; 93005; 93010; U0003

== ENCOUNTER 2019-12-20 12:52 | Inpatient (IN) | payer OTHER ==
[2019-12-20] MEDS ORDERED: P-EPHED 60MG/TRIPROLIDI 2.5MG TABLET PO PRN (13:03)
[2019-12-20] MEDS ORDERED: guaiFENesin 200 MG/10 ML 10 ML UNIT-DOSE CUPS PO PRN (13:03)
[2019-12-20] MEDS ORDERED: LOPERAMIDE HCL 2 MG CAPSULE PO PRN (13:03)
[2019-12-20] MEDS ORDERED: MAGNESIUM HYDROX 2400MG/30ML ORAL SUSPENSION 30 ML CUP PO PRN (13:03)
[2019-12-20] MEDS ORDERED: NICOTINE POLACRILEX 2 MG GUM BUC PRN (13:03)
[2019-12-20] MEDS ORDERED: MAGNESIUM CITRATE 300 ML BOTTLE PO PRN (13:03)
[2019-12-20] MEDS ORDERED: ACETAMINOPHEN 325 MG TABLET (FP) PO PRN (13:03)
--- NOTE | 2019-12-20 13:03 | HP ---
[facility] Rehab Assess/Revision - Admission History Admitted to Rehab from: [facility] Date of Admission to Rehab: 12/20/19 - Findings Detox History & Physical reviewed: Yes Concur with findings: Yes Comments/Additional Findings: transferred from detox to rehab admission as per protocol Inpatient Rehab Admission - Rehab Decision to Admit Inpatient rehab admission?: Yes - Initial Determination Are CD services needed?: Yes Free of communicable disease: Yes Not in need of hospitalization: Yes - Rehab Admission Criteria Previous failed treatment: Yes Poor recovery environment: Yes Comorbidities: Yes Lacks judgement: Yes Patient is meeting Inpatient Rehab admission criteria:: Yes
[2019-12-20] MEDS ORDERED: ALBUTEROL SO4 HFA INHALER IH PRN (13:12)
[2019-12-20] MEDS: IBUPROFEN 400 MG TABLET (FP) PO PRN (13:59)
[2019-12-20] MEDS: THIAMINE HCL 100 MG TABLET (FP) PO SCH (21:27)
[2019-12-20] MEDS: MELATONIN 5 MG TABLETS PO SCH (21:27)
[2019-12-21] MEDS: METHADONE HCL 40 MG DISPERSABLE TABLET PO SCH (06:31)
[2019-12-21] MEDS ORDERED: NICOTINE 7 MG/24 HOURS TOPICAL PATCH TD SCH (10:00)
[2019-12-21] MEDS: PRENATAL VITAMINS W/ FOLIC ACID TABLET (FP) PO SCH (10:18)
[2019-12-21] MEDS: hydrOXYzine PAMOATE 25 MG CAPSULE (FP) PO PRN ×2 (10:18→21:20)
[2019-12-21] MEDS ORDERED: NICOTINE POLACRILEX 4 MG GUM BUC PRN (12:17)
[2019-12-21] MEDS: NICOTINE 21 MG/24 HOURS TOPICAL PATCH TD SCH (13:22)
[2019-12-21] MEDS: IBUPROFEN 400 MG TABLET (FP) PO PRN (15:56)
[2019-12-21] MEDS: METHOCARBAMOL 500 MG TABLET PO PRN ×2 (15:56→21:20)
[2019-12-21] MEDS: LIDOCAINE 5% TOPICAL PATCH TP SCH (18:05)
[2019-12-21] MEDS: THIAMINE HCL 100 MG TABLET (FP) PO SCH (21:18)
[2019-12-21] MEDS: MELATONIN 5 MG TABLETS PO SCH (21:18)
[2019-12-21] MEDS: LIDOCAINE PATCH REMOVAL MC SCH (22:24)
[2019-12-22] MEDS: METHADONE HCL 40 MG DISPERSABLE TABLET PO SCH (06:51)
[2019-12-22] MEDS: PRENATAL VITAMINS W/ FOLIC ACID TABLET (FP) PO SCH (10:55)
[2019-12-22] MEDS: hydrOXYzine PAMOATE 25 MG CAPSULE (FP) PO PRN ×2 (11:15→21:51)
[2019-12-22] MEDS: LIDOCAINE 5% TOPICAL PATCH TP SCH (11:16)
[2019-12-22] MEDS: IBUPROFEN 400 MG TABLET (FP) PO PRN (11:17)
[2019-12-22] MEDS: METHOCARBAMOL 500 MG TABLET PO PRN ×3 (11:22→21:51)
[2019-12-22] MEDS: NICOTINE 21 MG/24 HOURS TOPICAL PATCH TD SCH (12:03)
[2019-12-22] MEDS: IBUPROFEN 600 MG TABLET (FP) PO PRN (13:57)
--- NOTE | 2019-12-22 15:21 | PN ---
[facility] Progress Note (SOAP) Subjective: c/o back pain. states pain started when he bent over an lifted a bag. Objective: General: anxious HEENTM: PERRLA, EOMI, Normocephalic Neck: supple Respirations: unlabored, no use of accessory muscles ABD; +BS, obese MSK; full weight bearing, full ROM, steady gait neuro: muscle strength equal bilaterally 12/22/19 15:18 Assessment: Muscle strain 12/22/19 15:20 Plan: Increased motrin Increased muscle relaxant Advised client to avoid strenuous exercise to prevent further irritation of back muscles Encouraged walking Continue use of lidoderm patch
[2019-12-22] MEDS: MELATONIN 5 MG TABLETS PO SCH (21:47)
[2019-12-22] MEDS: THIAMINE HCL 100 MG TABLET (FP) PO SCH (21:47)
[2019-12-22] MEDS: MAG HYDROX/AL HYDROX/SIMETH 30 ML UNIT-DOSE CUP PO PRN (21:48)
[2019-12-22] MEDS: LIDOCAINE PATCH REMOVAL MC SCH (21:49)
[2019-12-23] MEDS: METHADONE HCL 40 MG DISPERSABLE TABLET PO SCH (06:59)
[2019-12-23] MEDS: LIDOCAINE 5% TOPICAL PATCH TP SCH (10:51)
[2019-12-23] MEDS: IBUPROFEN 600 MG TABLET (FP) PO PRN (10:52)
[2019-12-23] MEDS: NICOTINE 21 MG/24 HOURS TOPICAL PATCH TD SCH (10:52)
[2019-12-23] MEDS: METHOCARBAMOL 500 MG TABLET PO PRN ×2 (10:52→21:10)
[2019-12-23] MEDS: hydrOXYzine PAMOATE 25 MG CAPSULE (FP) PO PRN ×2 (10:52→21:10)
[2019-12-23] MEDS: PRENATAL VITAMINS W/ FOLIC ACID TABLET (FP) PO SCH (10:52)
--- NOTE | 2019-12-23 14:47 | PN ---
[facility] Progress Note (SOAP) Subjective: patient requesting a cane. Yesterday, patient was seen for c/o back pain. After interviewing and the examination, the patient was observed exercising at the Nursing Station using full hip range of motion, which should not have been possible given his complaint. The examination was benign as well. Today, the patient was lingering around the room of another patient who had fell and was now lethargic. Mr. Chairez was asked to move away 3 times. The first time Mr. Chairez did not move away until I strongly insisted that he move away. Mr. Chairez returned when I left the room. Again, I went down to ask Mr. Chairez to move away from the room. A few minutes later, I went into the room to check on the patient who fell and found Mr. Chairez standing in the doorway again. I insisted that he leave the area, either go to his room or one of the common areas. He finally went to the room across from the room of the patient who fell. When I went to the desk to document on the patient who fell, Mr. Chariez came to ask me about the cane again. At that time I told him that I was assisting another patient and would follow up with him at a later time. It should be noted that Mr. Chairez was observed on camera standing for 30 minutes at the ritchie window next to the room of the patient who fell. I was subsequently asked to order a urine toxicology on Mr. Chairez, was was positive for benzos, fentanyl, and methadone. He is presently on methadone, he received benzos in detox, and he has not received fentanyl during his stay in rehab. His urine toxicology was positive for fentanyl and methadone on 12/15/19. Fentanyl is usually found in the urine 24 to 72 hours after the last dose. Objective: General: no apparent distress HEENTM: PERRLA MSK: full weight bearing, steady gait, full ROM neuro: A+O x4 12/23/19 14:47 12/23/19 15:08 Assessment: Patient requesting a cane 12/23/19 14:48 Plan: At this time, I do not believe that Mr. Chairez needs a cane at this time because he is able to walk without hesitancy and has a normal gait. He also has full ROM of his hips and back.
[2019-12-23] MEDS: MAG HYDROX/AL HYDROX/SIMETH 30 ML UNIT-DOSE CUP PO PRN (19:43)
[2019-12-23] MEDS: THIAMINE HCL 100 MG TABLET (FP) PO SCH (21:08)
[2019-12-23] MEDS: LIDOCAINE PATCH REMOVAL MC SCH (21:09)
[2019-12-23] MEDS: MELATONIN 5 MG TABLETS PO SCH (21:09)
[2019-12-24] MEDS: METHADONE HCL 40 MG DISPERSABLE TABLET PO SCH (06:27)
[2019-12-24] MEDS: LIDOCAINE 5% TOPICAL PATCH TP SCH (09:11)
[2019-12-24] MEDS: NICOTINE 21 MG/24 HOURS TOPICAL PATCH TD SCH (09:13)
[2019-12-24] MEDS: PRENATAL VITAMINS W/ FOLIC ACID TABLET (FP) PO SCH (09:13)
[2019-12-24] MEDS: METHOCARBAMOL 500 MG TABLET PO PRN ×2 (09:14→21:43)
[2019-12-24] MEDS: hydrOXYzine PAMOATE 25 MG CAPSULE (FP) PO PRN ×2 (09:15→21:43)
[2019-12-24] MEDS: MAG HYDROX/AL HYDROX/SIMETH 30 ML UNIT-DOSE CUP PO PRN ×2 (09:15→21:43)
[2019-12-24] MEDS: MELATONIN 5 MG TABLETS PO SCH (21:42)
[2019-12-24] MEDS: IBUPROFEN 600 MG TABLET (FP) PO PRN (21:42)
[2019-12-24] MEDS: THIAMINE HCL 100 MG TABLET (FP) PO SCH (21:43)
[2019-12-24] MEDS: LIDOCAINE PATCH REMOVAL MC SCH (21:43)
[2019-12-25] MEDS: METHADONE HCL 40 MG DISPERSABLE TABLET PO SCH (06:52)
--- NOTE | 2019-12-25 10:03 | PN ---
[facility] Progress Note Note: Vital Signs Temperature 97.3 F L 12/25/19 06:50 Pulse Rate 60 12/25/19 06:50 Respiratory Rate 16 12/25/19 06:50 Blood Pressure 117/85 12/25/19 06:50 O2 Sat by Pulse Oximetry (%) 95 12/25/19 06:50 Patient request cane for back pain Patient currently on pain medications for back pain Patient ambulating in the unit without gait abnormality No medical necessity at this time for ambulatory aid ( see note from Provider Kayla Mae) Continue to monitor
[2019-12-25] MEDS: LIDOCAINE 5% TOPICAL PATCH TP SCH (10:20)
[2019-12-25] MEDS: NICOTINE 21 MG/24 HOURS TOPICAL PATCH TD SCH (10:20)
[2019-12-25] MEDS: METHOCARBAMOL 500 MG TABLET PO PRN ×2 (10:21→21:06)
[2019-12-25] MEDS: hydrOXYzine PAMOATE 25 MG CAPSULE (FP) PO PRN ×2 (10:21→21:06)
[2019-12-25] MEDS: IBUPROFEN 600 MG TABLET (FP) PO PRN (10:21)
[2019-12-25] MEDS: PRENATAL VITAMINS W/ FOLIC ACID TABLET (FP) PO SCH (10:23)
[2019-12-25] MEDS: THIAMINE HCL 100 MG TABLET (FP) PO SCH (21:06)
[2019-12-25] MEDS: MELATONIN 5 MG TABLETS PO SCH (21:06)
[2019-12-25] MEDS: LIDOCAINE PATCH REMOVAL MC SCH (21:06)
[2019-12-25] MEDS: MAG HYDROX/AL HYDROX/SIMETH 30 ML UNIT-DOSE CUP PO PRN (21:07)
[2019-12-26] MEDS: METHADONE HCL 40 MG DISPERSABLE TABLET PO SCH (06:30)
[2019-12-26] MEDS: METHOCARBAMOL 500 MG TABLET PO PRN ×2 (10:17→21:35)
[2019-12-26] MEDS: LIDOCAINE 5% TOPICAL PATCH TP SCH (10:17)
[2019-12-26] MEDS: PRENATAL VITAMINS W/ FOLIC ACID TABLET (FP) PO SCH (10:17)
[2019-12-26] MEDS: hydrOXYzine PAMOATE 25 MG CAPSULE (FP) PO PRN ×2 (10:17→21:35)
[2019-12-26] MEDS: NICOTINE 21 MG/24 HOURS TOPICAL PATCH TD SCH (10:18)
[2019-12-26] MEDS: IBUPROFEN 600 MG TABLET (FP) PO PRN ×2 (10:18→21:34)
[2019-12-26] MEDS: MELATONIN 5 MG TABLETS PO SCH (21:33)
[2019-12-26] MEDS: LIDOCAINE PATCH REMOVAL MC SCH (21:33)
[2019-12-26] MEDS: THIAMINE HCL 100 MG TABLET (FP) PO SCH (21:33)
[2019-12-27] MEDS: METHADONE HCL 40 MG DISPERSABLE TABLET PO SCH (06:05)
[2019-12-27] MEDS: LIDOCAINE 5% TOPICAL PATCH TP SCH (10:50)
[2019-12-27] MEDS: PRENATAL VITAMINS W/ FOLIC ACID TABLET (FP) PO SCH (10:50)
[2019-12-27] MEDS: METHOCARBAMOL 500 MG TABLET PO PRN ×2 (10:50→21:20)
[2019-12-27] MEDS: NICOTINE 21 MG/24 HOURS TOPICAL PATCH TD SCH (10:50)
[2019-12-27] MEDS: hydrOXYzine PAMOATE 25 MG CAPSULE (FP) PO PRN ×2 (10:50→21:20)
[2019-12-27] MEDS: IBUPROFEN 600 MG TABLET (FP) PO PRN ×2 (10:51→21:20)
[2019-12-27] MEDS: MAG HYDROX/AL HYDROX/SIMETH 30 ML UNIT-DOSE CUP PO PRN (10:51)
[2019-12-27] MEDS: LIDOCAINE PATCH REMOVAL MC SCH (21:19)
[2019-12-27] MEDS: MELATONIN 5 MG TABLETS PO SCH (21:19)
[2019-12-27] MEDS: THIAMINE HCL 100 MG TABLET (FP) PO SCH (21:19)
[2019-12-28] MEDS: METHADONE HCL 40 MG DISPERSABLE TABLET PO SCH (07:14)
[2019-12-28] MEDS: hydrOXYzine PAMOATE 25 MG CAPSULE (FP) PO PRN ×2 (10:23→21:26)
[2019-12-28] MEDS: METHOCARBAMOL 500 MG TABLET PO PRN ×2 (10:23→21:26)
[2019-12-28] MEDS: IBUPROFEN 600 MG TABLET (FP) PO PRN ×2 (10:23→21:27)
[2019-12-28] MEDS: NICOTINE 21 MG/24 HOURS TOPICAL PATCH TD SCH (10:23)
[2019-12-28] MEDS: PRENATAL VITAMINS W/ FOLIC ACID TABLET (FP) PO SCH (10:24)
[2019-12-28] MEDS: LIDOCAINE 5% TOPICAL PATCH TP SCH (10:24)
[2019-12-28] MEDS: MELATONIN 5 MG TABLETS PO SCH (21:26)
[2019-12-28] MEDS: THIAMINE HCL 100 MG TABLET (FP) PO SCH (21:26)
[2019-12-28] MEDS: LIDOCAINE PATCH REMOVAL MC SCH (21:26)
[2019-12-28] MEDS: MAG HYDROX/AL HYDROX/SIMETH 30 ML UNIT-DOSE CUP PO PRN (21:27)
[2019-12-29] MEDS: METHADONE HCL 40 MG DISPERSABLE TABLET PO SCH (06:20)
[2019-12-29] MEDS: hydrOXYzine PAMOATE 25 MG CAPSULE (FP) PO PRN ×2 (10:33→21:07)
[2019-12-29] MEDS: PRENATAL VITAMINS W/ FOLIC ACID TABLET (FP) PO SCH (10:33)
[2019-12-29] MEDS: LIDOCAINE 5% TOPICAL PATCH TP SCH (10:33)
[2019-12-29] MEDS: METHOCARBAMOL 500 MG TABLET PO PRN ×2 (10:33→21:07)
[2019-12-29] MEDS: NICOTINE 21 MG/24 HOURS TOPICAL PATCH TD SCH (10:33)
[2019-12-29] MEDS: THIAMINE HCL 100 MG TABLET (FP) PO SCH (21:07)
[2019-12-29] MEDS: MELATONIN 5 MG TABLETS PO SCH (21:08)
[2019-12-29] MEDS: MAG HYDROX/AL HYDROX/SIMETH 30 ML UNIT-DOSE CUP PO PRN (21:08)
[2019-12-29] MEDS: LIDOCAINE PATCH REMOVAL MC SCH (21:08)
[2019-12-30] MEDS: METHADONE HCL 40 MG DISPERSABLE TABLET PO SCH (06:06)
[2019-12-30] MEDS: LIDOCAINE 5% TOPICAL PATCH TP SCH (09:36)
[2019-12-30] MEDS: hydrOXYzine PAMOATE 25 MG CAPSULE (FP) PO PRN ×2 (09:36→21:37)
[2019-12-30] MEDS: NICOTINE 21 MG/24 HOURS TOPICAL PATCH TD SCH (09:36)
[2019-12-30] MEDS: METHOCARBAMOL 500 MG TABLET PO PRN ×2 (09:36→21:37)
[2019-12-30] MEDS: PRENATAL VITAMINS W/ FOLIC ACID TABLET (FP) PO SCH (09:36)
[2019-12-30] MEDS: MAG HYDROX/AL HYDROX/SIMETH 30 ML UNIT-DOSE CUP PO PRN (21:37)
[2019-12-30] MEDS: MELATONIN 5 MG TABLETS PO SCH (21:37)
[2019-12-30] MEDS: THIAMINE HCL 100 MG TABLET (FP) PO SCH (21:37)
[2019-12-30] MEDS: LIDOCAINE PATCH REMOVAL MC SCH (21:38)
[2019-12-31] MEDS: METHADONE HCL 40 MG DISPERSABLE TABLET PO SCH (06:34)
[2019-12-31] MEDS: PRENATAL VITAMINS W/ FOLIC ACID TABLET (FP) PO SCH (10:38)
[2019-12-31] MEDS: NICOTINE 21 MG/24 HOURS TOPICAL PATCH TD SCH (10:38)
[2019-12-31] MEDS: LIDOCAINE 5% TOPICAL PATCH TP SCH (10:39)
[2019-12-31] MEDS: hydrOXYzine PAMOATE 25 MG CAPSULE (FP) PO PRN ×2 (10:39→21:46)
[2019-12-31] MEDS: METHOCARBAMOL 500 MG TABLET PO PRN ×2 (10:39→21:46)
[2019-12-31] MEDS: MELATONIN 5 MG TABLETS PO SCH (21:45)
[2019-12-31] MEDS: THIAMINE HCL 100 MG TABLET (FP) PO SCH (21:45)
[2019-12-31] MEDS: LIDOCAINE PATCH REMOVAL MC SCH (21:45)
[2019-12-31] MEDS: MAG HYDROX/AL HYDROX/SIMETH 30 ML UNIT-DOSE CUP PO PRN (21:46)
[2020-01-01] MEDS: METHADONE HCL 40 MG DISPERSABLE TABLET PO SCH (06:31)
[2020-01-01] MEDS: NICOTINE 21 MG/24 HOURS TOPICAL PATCH TD SCH (10:51)
[2020-01-01] MEDS: METHOCARBAMOL 500 MG TABLET PO PRN ×2 (10:51→21:08)
[2020-01-01] MEDS: PRENATAL VITAMINS W/ FOLIC ACID TABLET (FP) PO SCH (10:51)
[2020-01-01] MEDS: LIDOCAINE 5% TOPICAL PATCH TP SCH (10:51)
[2020-01-01] MEDS: hydrOXYzine PAMOATE 25 MG CAPSULE (FP) PO PRN ×2 (10:51→21:08)
[2020-01-01] MEDS: MAG HYDROX/AL HYDROX/SIMETH 30 ML UNIT-DOSE CUP PO PRN (21:08)
[2020-01-01] MEDS: THIAMINE HCL 100 MG TABLET (FP) PO SCH (21:08)
[2020-01-01] MEDS: LIDOCAINE PATCH REMOVAL MC SCH (21:08)
[2020-01-01] MEDS: MELATONIN 5 MG TABLETS PO SCH (21:08)
[2020-01-02] MEDS: METHADONE HCL 40 MG DISPERSABLE TABLET PO SCH (06:06)
[2020-01-02] MEDS: LIDOCAINE 5% TOPICAL PATCH TP SCH (10:02)
[2020-01-02] MEDS: NICOTINE 21 MG/24 HOURS TOPICAL PATCH TD SCH (10:02)
[2020-01-02] MEDS: PRENATAL VITAMINS W/ FOLIC ACID TABLET (FP) PO SCH (10:02)
[2020-01-02] MEDS: THIAMINE HCL 100 MG TABLET (FP) PO SCH (21:47)
[2020-01-02] MEDS: LIDOCAINE PATCH REMOVAL MC SCH (21:47)
[2020-01-02] MEDS: MELATONIN 5 MG TABLETS PO SCH (21:47)
[2020-01-02] MEDS: MAG HYDROX/AL HYDROX/SIMETH 30 ML UNIT-DOSE CUP PO PRN (21:48)
[2020-01-03] MEDS: METHADONE HCL 40 MG DISPERSABLE TABLET PO SCH (06:31)
[2020-01-03] MEDS: NICOTINE 21 MG/24 HOURS TOPICAL PATCH TD SCH (10:07)
[2020-01-03] MEDS: LIDOCAINE 5% TOPICAL PATCH TP SCH (10:07)
[2020-01-03] MEDS: PRENATAL VITAMINS W/ FOLIC ACID TABLET (FP) PO SCH (10:07)
[2020-01-03] MEDS: hydrOXYzine PAMOATE 25 MG CAPSULE (FP) PO PRN (10:08)
[2020-01-03] MEDS: LIDOCAINE PATCH REMOVAL MC SCH (21:10)
[2020-01-03] MEDS: MELATONIN 5 MG TABLETS PO SCH (21:10)
[2020-01-03] MEDS: THIAMINE HCL 100 MG TABLET (FP) PO SCH (21:10)
[2020-01-03] MEDS: MAG HYDROX/AL HYDROX/SIMETH 30 ML UNIT-DOSE CUP PO PRN (21:11)
[2020-01-04] MEDS: METHADONE HCL 40 MG DISPERSABLE TABLET PO SCH (06:29)
[2020-01-04] MEDS: PRENATAL VITAMINS W/ FOLIC ACID TABLET (FP) PO SCH (11:14)
[2020-01-04] MEDS: METHOCARBAMOL 500 MG TABLET PO PRN ×2 (11:15→22:04)
[2020-01-04] MEDS: NICOTINE 21 MG/24 HOURS TOPICAL PATCH TD SCH (11:16)
[2020-01-04] MEDS: hydrOXYzine PAMOATE 25 MG CAPSULE (FP) PO PRN ×2 (11:16→22:04)
[2020-01-04] MEDS: LIDOCAINE 5% TOPICAL PATCH TP SCH (11:17)
[2020-01-04] MEDS: MELATONIN 5 MG TABLETS PO SCH (22:04)
[2020-01-04] MEDS: THIAMINE HCL 100 MG TABLET (FP) PO SCH (22:04)
[2020-01-04] MEDS: MAG HYDROX/AL HYDROX/SIMETH 30 ML UNIT-DOSE CUP PO PRN (22:05)
[2020-01-04] MEDS: LIDOCAINE PATCH REMOVAL MC SCH (22:17)
[2020-01-05] MEDS: METHADONE HCL 40 MG DISPERSABLE TABLET PO SCH (06:46)
[2020-01-05 08:40] VITALS: BP 132/82; PULSE 74; TEMP 97.5
--- NOTE | 2020-01-05 08:57 | DS ---
[facility] Rehab Discharge Summary - [facility] Rehab Discharge Summary Admission Date: 12/20/19 Discharge Date: 01/05/20 - History Present History: Alcohol dependence, MMTP, Opioid dependence Pertinent Past History: luis Chairez is a 39 yo male presenting to [facility] for alcohol and heroin treatment PMH: HCV treated and asthma PSH: B/L INGUINAL HERNIA PSYCH H: NONE SOCIAL: HOMELESS, [place]ES [place] [address] LEGAL: NO COURT DATE - Discharge Physical Exam Vital Signs: Vital Signs Temperature 97.5 F L 01/05/20 06:38 Pulse Rate 74 01/05/20 06:38 Respiratory Rate 20 01/05/20 06:38 Blood Pressure 132/82 01/05/20 06:38 O2 Sat by Pulse Oximetry (%) 98 01/05/20 06:38 Pertinent Admission Physical Exam Findings: Physical General Appearance: No Apparent Distress HEENTM: EOMI, Normocephalic, Respiratory: no use of accessory muscles, respirations unlabored Abdominal: +Bowel Sounds, Musculoskeletal: Gait Steady Neurological: CN 2-12 intact, Fully Oriented, - Treatment Discharge Condition: Discharge condition good (Patient has had a phone screening with [facility]. Medically stable for discharge.) Hospital Course: Patient attended groups, had 1;1 with his provider. He was adherent to his medication regimen and treatment plan. He was treated for pain while in rehab. - Medication Discharge Medications: Ambulatory Orders Methadone [Dolophine -] 80 mg PO DAILY 08/10/19 - Medication-Assisted Treatment (MAT) Medication-Assisted Treatment (MAT): Yes MAT Follow-up Referral: MMTP at [facility] - Discharge Instructions Diet, activity, other medical instructions: Diet: as tolerated Activity: as tolerated Other medical instructions: Please follow up with aftercare referral. - Diagnosis (1) Alcohol dependence with withdrawal, uncomplicated Current Visit: No Status: Acute (2) Methadone maintenance therapy patient Current Visit: No Status: Chronic (3) Opioid dependence on agonist therapy Current Visit: No Status: Chronic - Follow-up Referral Minutes to complete discharge: 15 - AMA Did Patient Leave Against Medical Advice: No
[2020-01-05] MEDS: METHOCARBAMOL 500 MG TABLET PO PRN (09:25)
[2020-01-05] MEDS: PRENATAL VITAMINS W/ FOLIC ACID TABLET (FP) PO SCH (09:25)
[2020-01-05] MEDS: LIDOCAINE 5% TOPICAL PATCH TP SCH (09:26)
[2020-01-05] MEDS: hydrOXYzine PAMOATE 25 MG CAPSULE (FP) PO PRN (09:26)
[2020-01-05] MEDS: NICOTINE 21 MG/24 HOURS TOPICAL PATCH TD SCH (09:26)
== END 2020-01-05 09:35 | disposition home or self-care (01) | DRG 772 ==
LOC: YASAS 12:52 → Y3W 12:53
PROVIDERS: ADMIT Allergy & Immunology; ATTEND Allergy & Immunology
PROC: HZ42ZZZ Group Counseling for Substance Abuse Treatment, Cognitive-Behavioral (ICD-10-PCS; principal; 2019-12-20)
DX: F10.20 Alcohol dependence, uncomplicated (principal); F11.20 Opioid dependence, uncomplicated; J45.909 Unspecified asthma, uncomplicated; M54.89 Other dorsalgia; S39.012A Strain of muscle, fascia and tendon of lower back, initial encounter; X50.9XXA Other and unspecified overexertion or strenuous movements or postures, initial encounter; Y93.89 Activity, other specified; Y92.89 Other specified places as the place of occurrence of the external cause; Y99.8 Other external cause status; Z86.19 Personal history of other infectious and parasitic diseases; Z98.890 Other specified postprocedural states; Z59.0 Homelessness